=== PATIENT | female | born 2000 | race Caucasian/White ===

== ENCOUNTER → 2022-10-23 | Outpatient (CLI) | payer OTHER ==
[~2022-10-23] MED LIST: GADOTERATE MEGLUMINE 10 MMOL/20 ML VIAL IVP ONE; NO MEDS
== END | disposition home or self-care (01) ==
LOC: RADMN 11:36
PROVIDERS: ATTEND Internal Medicine Cardiovascular Disease
DX: I63.9 Cerebral infarction, unspecified (principal)
CPT/HCPCS: 70553; A9575